=== PATIENT | female | born 1980 | race African-American/Black ===

== ENCOUNTER 2021-09-28 09:35 | Emergency (ER) | payer MEDICAID ==
[~2021-09-28] VITALS: Ht 172.7 cm; Wt 79.0 kg
[2021-09-28 09:43] VITALS: BP 132/82
[2021-09-28] MEDS ORDERED: LORAZEPAM 1MG TABLET PO ONE (10:00)
== END 2021-09-28 11:05 | disposition home or self-care (01) ==
LOC: ER 09:35
DX: F41.9 Anxiety disorder, unspecified (principal); Z88.6 Allergy status to analgesic agent
CPT/HCPCS: 99283